=== PATIENT | female | born 1960 | race African-American/Black ===

== ENCOUNTER 2019-07-05 05:33 | Inpatient (IN) ==
[2019-07-01 10:48] LABS: Basophils % 0.6 % (0.0-0.8); Eosinophils # 0.3 10*3/uL (0.0-0.87); Eosinophils % 5.4 % (0.00-10.9); Hematocrit 40.8 VOL% (35.7-47.0); Hemoglobin 12.8 GM/DL (12.0-16.0); Immature Granulocytes % 0.4 %; Immature Granulocytes Absolute 0.02 #; Lymphocytes # 1.8 10*3/uL (1.4-4.0); Lymphocytes % 38.3 % (21.3-54.2); Mean Corpuscular HGB Conc 31.4 GM/DL (32-36); Mean Corpuscular Volume 97.1 FL (87-102); Mean Platelet Volume 9.3 FL (9.6-12.0); Monocytes % 8.5 % (1.7-12.7); Neutrophils % 46.8 % (38.7-73.9); Platelet Count 270 T/CUMM (130-400); Red Cell Distribution Width 12.7 % (9.3-17.3); White Blood Count 4.8 T/CUMM (4-12)
[2019-07-01 11:17] LABS: Calcium 8.5 MG/DL (8.5-10.1); Osmolality,Calculated 274.5 MOS/KG (273-304)
[2019-07-05] MEDS ORDERED: ALVIMOPAN 12 MG CAPSULE ONE (05:56)
[2019-07-05] MEDS ORDERED: ERTAPENEM 1,000 MG VIAL ONE (05:56)
[2019-07-05] MEDS ORDERED: ERTAPENEM 1,000 MG in SODIUM CHLORIDE 0.9% 100 ML IV ONE (07:00)
[2019-07-05] MEDS ORDERED: ALVIMOPAN 12 MG CAPSULE PO ONE (07:00)
[2019-07-05] MEDS ORDERED: DIAZEPAM 5 MG TABLET ONE (08:28)
[2019-07-05] MEDS ORDERED: DIAZEPAM 5 MG TABLET PO ONE (08:42)
[2019-07-05] MEDS: LACTATED RINGERS 1,000 ML IV SCH ×3 (08:43→16:46)
[2019-07-05] MEDS ORDERED: DEXAMETHASONE 4 MG/1 ML VIAL ONE (09:38)
[2019-07-05] MEDS ORDERED: BUPIVACAINE MPF 0.25% 30 ML VIAL ONE (09:38)
[2019-07-05] MEDS ORDERED: INDOCYANINE GREEN 25 MG VIAL IV ONE (12:15)
[2019-07-05] MEDS ORDERED: ACETAMINOPHEN 1,000 MG/100 ML VIAL IV ONE (12:16)
[2019-07-05] MEDS ORDERED: TISSUE ADHESIVE 1 EACH APPLICATOR TOP ONE (13:36)
[2019-07-05] MEDS ORDERED: LIDOCAINE 2% 5 ML VIAL ONE (14:20)
[2019-07-05] MEDS ORDERED: propofoL 200 MG/20 ML VIAL IV ONE (14:20)
[2019-07-05] MEDS ORDERED: MIDAZOLAM 2 MG/2 ML VIAL ONE (14:21)
[2019-07-05] MEDS ORDERED: PHENYLEPHRINE 10 MG/1 ML VIAL IV ONE (14:21)
[2019-07-05] MEDS ORDERED: fentaNYL 100 MCG/2 ML VIAL ONE (14:21)
[2019-07-05] MEDS ORDERED: SEVOFLURANE 1 UNIT/15 MINUTE INH ONE (14:21)
[2019-07-05] MEDS ORDERED: GLYCOPYRROLATE 0.4 MG/2 ML VIAL ONE (14:21)
[2019-07-05] MEDS ORDERED: ONDANSETRON 4 MG/2 ML VIAL ONE ×2 (14:21→14:49)
[2019-07-05] MEDS ORDERED: ROCURONIUM 100 MG/10 ML VIAL IV ONE (14:22)
[2019-07-05] MEDS ORDERED: NEOSTIGMINE 10 MG/10 ML VIAL ONE (14:22)
[2019-07-05] MEDS ORDERED: SUCCINYLCHOLINE 200 MG/10 ML VIAL ONE (14:22)
[2019-07-05] MEDS ORDERED: HYDROmorphone 2 MG/1 ML VIAL ONE (14:48)
[2019-07-05] MEDS ORDERED: ONDANSETRON 4 MG/2 ML VIAL IV PRN ×2 (14:48→15:57)
[2019-07-05] MEDS ORDERED: HYDROmorphone 2 MG/1 ML VIAL IV PRN ×2 (14:48→15:57)
[2019-07-05] MEDS ORDERED: ALBUTEROL 2.5 MG/3 ML NEB RESP TX PRN (15:57)
[2019-07-05 16:30] LABS: Basophils % 0.1 % (0.0-0.8); Eosinophils % 0.1 % (0.00-10.9); Hematocrit 39.9 VOL% (35.7-47.0); Hemoglobin 12.5 GM/DL (12.0-16.0); Immature Granulocytes % 0.5 %; Immature Granulocytes Absolute 0.05 #; Lymphocytes # 0.7 10*3/uL (1.4-4.0); Lymphocytes % 7.2 % (21.3-54.2); Mean Corpuscular HGB Conc 31.3 GM/DL (32-36); Mean Corpuscular Volume 98.5 FL (87-102); Mean Platelet Volume 9.4 FL (9.6-12.0); Neutrophils % 88.1 % (38.7-73.9); Platelet Count 270 T/CUMM (130-400); Red Blood Count 4.05 MC/CUMM (3.8-5.5); Red Cell Distribution Width 12.5 % (9.3-17.3); White Blood Count 9.4 T/CUMM (4-12)
[2019-07-05] MEDS: KETOROLAC 30 MG/1 ML VIAL IV SCH ×2 (16:32→21:11)
[2019-07-05 16:53] LABS: Calcium 8.4 MG/DL (8.5-10.1); Osmolality,Calculated 274.8 MOS/KG (273-304)
[2019-07-05] MEDS ORDERED: ROSUVASTATIN 10 MG TABLET PO SCH (21:00)
[2019-07-05] MEDS: ALVIMOPAN 12 MG CAPSULE PO SCH (21:11)
[2019-07-05] MEDS: FLUTICASONE/SALMETEROL 500-50 DISKUS 14 DOSE INH SCH (21:14)
[2019-07-06] MEDS ORDERED: diphenhydrAMINE CAP 25 MG CAPSULE ONE (00:20)
[2019-07-06] MEDS: diphenhydrAMINE CAP 25 MG CAPSULE PO PRN ×2 (00:28→09:51)
[2019-07-06] MEDS: LACTATED RINGERS 1,000 ML IV SCH (02:46)
[2019-07-06 05:45] LABS: Hemoglobin 10.9 GM/DL (12.0-16.0); Immature Granulocytes % 0.5 %; Immature Granulocytes Absolute 0.04 #; Lymphocytes # 0.9 10*3/uL (1.4-4.0); Lymphocytes % 10.6 % (21.3-54.2); Mean Corpuscular Volume 94.6 FL (87-102); Monocytes % 10.1 % (1.7-12.7); Neutrophils % 78.8 % (38.7-73.9); Platelet Count 237 T/CUMM (130-400); Red Blood Count 3.49 MC/CUMM (3.8-5.5); Red Cell Distribution Width 12.6 % (9.3-17.3); White Blood Count 8.6 T/CUMM (4-12)
[2019-07-06 06:07] LABS: Calcium 8.3 MG/DL (8.5-10.1); Osmolality,Calculated 274.7 MOS/KG (273-304)
[2019-07-06] MEDS ORDERED: ENOXAPARIN 40 MG/0.4 ML SYRINGE SUBCUT SCH (07:59)
[2019-07-06] MEDS: FLUTICASONE/SALMETEROL 500-50 DISKUS 14 DOSE INH SCH (08:06)
[2019-07-06] MEDS: ALVIMOPAN 12 MG CAPSULE PO SCH (08:08)
[2019-07-06 08:19] VITALS: BP 117/58
[2019-07-06] MEDS ORDERED: OXYBUTYNIN XL 10 MG TABLET PO SCH (09:00)
[2019-07-06] MEDS ORDERED: CETIRIZINE 10 MG TABLET PO SCH (09:00)
[2019-07-06] MEDS ORDERED: PSEUDOEPHEDRINE 30 MG TABLET PO SCH (09:00)
== END 2019-07-06 11:35 | disposition home or self-care (01) | DRG 331 ==
LOC: N.SDSINP 05:33 → N.OR 05:33 → N.3E 05:34 → N.OR 07-06 11:35 → N.3E 07-06 13:08
PROVIDERS: ADMIT Surgery; ATTEND Surgery